=== PATIENT | female | born 1935 | race Caucasian/White ===

== ENCOUNTER 2025-04-23 02:07 | Inpatient (IN) | payer MEDICARE, MEDICAID ==
[2025-04-23] MEDS ORDERED: hydrALAZINE 20 MG/ML VIAL SLOW IVP PRN (03:10)
[2025-04-23] MEDS ORDERED: Glucagon 1 MG/ML KIT IM PRN (04:19)
[2025-04-23] MEDS ORDERED: Dextrose 50% Abboject 50 ML SYRINGE SLOW IVP PRN (04:19)
[2025-04-23 04:34] VITALS: BMI 25.1
[2025-04-23 04:58] LABS: #Basophils 0.04 10x3/uL (0.0-0.2); #Eosinophils 0.03 10x3/uL (0.0-0.7); #Monocytes 1.08 10x3/uL (0.11-0.59); #Neutrophils 5.16 10x3/uL (1.40-6.50); %Basophils 0.5 % (0.0-1.0); %Eosinophils 0.4 % (0.0-10.0); %Lymphocytes 21.7 % (21.0-51.0); %Monocytes 13.3 % (0.0-10.0); %Neutrophils 63.7 % (42.0-75.0); Hematocrit 32.3 % (36.0-47.0); Hemoglobin 10.5 g/dL (12.0-16.0); Mean Corpuscular Hemoglobin 28.1 pg (27.0-31.0); Mean Corpuscular Volume 86.4 fL (78.0-98.0); Platelet Count 158 10x3/uL (130-400); Red Blood Cell (RBC) Count 3.74 mill/uL (4.20-5.40); White Blood Cell (WBC) Count 8.10 10x3/uL (4.8-10.8)
[2025-04-23 05:06] LABS: INR-International Normal Ratio 1.1; Prothrombin Time 14.6 sec (12.0-14.7)
[2025-04-23 05:07] LABS: PTT 33.6 sec (22.9-36.1)
[2025-04-23 05:09] LABS: ALT (SGPT) 11 U/L (Less than 34); AST (SGOT) 25 U/L (11-34); Albumin 3.5 g/dL (3.1-4.5); Alkaline Phosphatase 61 U/L (40-110); Anion Gap 12 mmol/L (10-20); BUN (Urea Nitrogen) 10 mg/dL (9.8-20.1); Bilirubin, Total 0.4 mg/dL (0.3-1.2); Calc. Creatinine Clearance 59 mL/min (70-130); Calcium 9.4 mg/dL (7.8-10.44); Carbon Dioxide 28 mmol/L (23-31); Chloride 104 mmol/L (98-107); Globulin 3.0 g/dL (2.4-3.5); Glucose 144 mg/dL (83-110); Potassium 3.9 mmol/L (3.5-5.1); Sodium 140 mmol/L (136-145)
[2025-04-23] MEDS: Mupirocin 1 GM TUBE NASAL DECOLONIZATION NASAL SCH (08:08)
[2025-04-23] MEDS: Famotidine/PF 20 mg/2ml Vial SLOW IVP SCH (08:08)
[2025-04-23] MEDS: Ondansetron PF 4 MG/2 ML Vial IVP PRN (13:00)
[2025-04-23] MEDS: Benzonatate 100 MG CAP PO PRN (16:54)
[2025-04-23] MEDS: Acetaminophen 325 MG TAB PO PRN (16:54)
[2025-04-24] MEDS: Guaifenesin DM 100-10/5 ML UDCUP PO PRN (00:59)
[2025-04-24 03:56] LABS: #Basophils 0.04 10x3/uL (0.0-0.2); #Eosinophils 0.13 10x3/uL (0.0-0.7); #Monocytes 0.87 10x3/uL (0.11-0.59); #Neutrophils 5.42 10x3/uL (1.40-6.50); %Basophils 0.5 % (0.0-1.0); %Eosinophils 1.6 % (0.0-10.0); %Lymphocytes 19.1 % (21.0-51.0); %Monocytes 10.8 % (0.0-10.0); %Neutrophils 67.6 % (42.0-75.0); Hematocrit 33.4 % (36.0-47.0); Hemoglobin 10.3 g/dL (12.0-16.0); Mean Corpuscular Hemoglobin 27.5 pg (27.0-31.0); Mean Corpuscular Volume 89.1 fL (78.0-98.0); Platelet Count 150 10x3/uL (130-400); Red Blood Cell (RBC) Count 3.75 mill/uL (4.20-5.40); White Blood Cell (WBC) Count 8.02 10x3/uL (4.8-10.8)
[2025-04-24 04:10] LABS: Anion Gap 15 mmol/L (10-20); BUN (Urea Nitrogen) 8 mg/dL (9.8-20.1); Calc. Creatinine Clearance 51 mL/min (70-130); Calcium 8.7 mg/dL (7.8-10.44); Carbon Dioxide 27 mmol/L (23-31); Chloride 100 mmol/L (98-107); Glucose 137 mg/dL (83-110); Potassium 3.9 mmol/L (3.5-5.1); Sodium 138 mmol/L (136-145)
[2025-04-24 09:01] VITALS: BMI 23.1
[2025-04-24 09:48] VITALS: TEMP 98.7
[2025-04-24 10:16] VITALS: BP 146/56
[2025-04-26] MEDS ORDERED: FLU (Fluad Triv) 25-26 (65UP)PF 45 MCG/0.5 ML Syringe IM ONE (09:00)
== END 2025-04-24 14:05 | disposition home or self-care (01) | DRG 85 ==
LOC: ERS 02:07 → CCU 03:10
PROVIDERS: ADMIT Colon & Rectal Surgery; ATTEND Colon & Rectal Surgery
DX: S06.6X0A Traumatic subarachnoid hemorrhage without loss of consciousness, initial encounter (principal); U07.1 COVID-19; G31.89 Other specified degenerative diseases of nervous system; S00.03XA Contusion of scalp, initial encounter; I48.0 Paroxysmal atrial fibrillation; E03.9 Hypothyroidism, unspecified; F03.90 Unspecified dementia, unspecified severity, without behavioral disturbance, psychotic disturbance, mood disturbance, and anxiety; I10 Essential (primary) hypertension; R40.2362 Coma scale, best motor response, obeys commands, at arrival to emergency department; R40.2132 Coma scale, eyes open, to sound, at arrival to emergency department; R40.2252 Coma scale, best verbal response, oriented, at arrival to emergency department; J45.909 Unspecified asthma, uncomplicated; I25.10 Atherosclerotic heart disease of native coronary artery without angina pectoris; F17.210 Nicotine dependence, cigarettes, uncomplicated; Z95.0 Presence of cardiac pacemaker; E78.5 Hyperlipidemia, unspecified
CPT/HCPCS: 36415; 36416; 70450; 71045; 80048; 80053; 84443; 85025; 85610; 85730; G0390; J1308; J2272; J2405